=== PATIENT | male | born 1975 | race Caucasian/White ===

== ENCOUNTER 2019-02-10 21:44 | Inpatient (IN) | payer SELFPAY ==
[~2019-02-10] VITALS: Ht 182.9 cm; Wt 81.6 kg
[2019-02-10 23:05] LABS: BILIRUBIN,URINE LARGE (NEG); CLARITY,URINE CLEAR; COLOR,URINE AMBER; NITRITE,URINE NEGATIVE (NEG); PH,URINE 5.5; PROTEIN,URINE 30 mg/dL (NEG-TRACE)
[2019-02-10 23:10] LABS: BACTERIA,URINE 0 /HPF (0-FEW); RBC,URINE 0 /HPF (0-2); SQUAMOUS EPITHELIAL CELL,UR FEW /LPF
[2019-02-10 23:11] LABS: BASO # 0.1 x10^3/uL (0.0-0.2); BASO % 1 % (0-3); EOS # 0.3 x10^3/uL (0.0-0.7); EOS % 2 % (0-3); HEMATOCRIT 51.5 % (39.0-53.0); HEMOGLOBIN 17.5 g/dL (13.0-17.5); LYMPH # 2.2 x10^3/uL (1.0-4.8); LYMPH % 14 % (24-48); MEAN CORPUSCULAR HEMOGLOBIN 30 pg (25-35); MEAN CORPUSCULAR HGB CONC 34 g/dL (31-37); MEAN CORPUSCULAR VOLUME 87 fL (79-100); MONO # 1.5 x10^3/uL (0.0-1.1); MONO % 10 % (0-9); NEUT % 73 % (31-73); PLATELET COUNT 251 x10^3/uL (140-400); RED CELL DISTRIBUTION WIDTH 14.2 % (11.5-14.5)
[2019-02-10 23:11] LABS: AMORPHOUS SEDIMENT,UR PRESENT /HPF; HYALINE CASTS, URINE MANY /HPF
[2019-02-10 23:13] LABS: AMPHETAMINE/METHAMPHETAMINE POS (NEG); BARBITURATES NEG (NEG); BENZODIAZEPINES NEG (NEG); CANNABINOIDS NEG (NEG); COCAINE NEG (NEG); METHADONE NEG (NEG); OPIATES NEG (NEG); PHENCYCLIDINE NEG (NEG)
[2019-02-10 23:20] LABS: PROTHROMBIN TIME PATIENT 12.8 SEC (11.7-14.0)
[2019-02-10 23:27] LABS: CALCIUM 9.3 mg/dL (8.5-10.1); CREATININE 1.5 mg/dL (0.7-1.3); GFR 51.3; POTASSIUM 3.6 mmol/L (3.5-5.1)
[2019-02-10] MEDS ORDERED: ONDANSETRON PF 4 MG/2 ML VIAL. IV ONE (23:30)
[2019-02-10] MEDS ORDERED: IV NORMAL SALINE 1000ML BAG 1,000 ML IV ONE (23:30)
[2019-02-10] MEDS ORDERED: GLUCAGON,HUMAN RECOMBINANT 1 MG/ML VIAL. IV ONE (23:30)
[2019-02-10 23:33] LABS: ALBUMIN 3.8 g/dL (3.4-5.0); ALBUMIN/GLOBULIN RATIO 0.8 (1.0-1.7); TOTAL PROTEIN 8.6 g/dL (6.4-8.2)
--- NOTE | 2019-02-11 00:26 | PHYS DOC ---
Past Medical History Past Medical History: Asthma Past Surgical History: No Surgical History Alcohol Use: None Drug Use: None Adult General Chief Complaint Chief Complaint: HEAT EXPOSURE HPI HPI Patient is a 43 year old male who was salt presenting with a chief complaint of initially complaint was that of heat exposure. He says he was outside all day in the heat yesterday he came home he had body aches and muscle aches and he was very tired overall. In addition he ate a hot dog 3 days ago he says that he feels like it is still stuck triage nurse tells me that when he was out in the waiting room he was swallowing liquids just fine without any difficulty however on my violation the emergency room he tells me that he is unable to do that. He says this happened to him a few times before and it usually passes on its own but has not done so. Of note patient's urine drug screen is positive for methamphetamine. Review of Systems Review of Systems Constitutional: Eyes: Denies change in visual acuity, redness, or eye pain [] GI: Musculoskeletal: Denies back pain or joint pain [] Integument: Denies rash or skin lesions [] Neurologic: Denies headache, focal weakness or sensory changes [] Endocrine: Denies polyuria or polydipsia [] All other systems were reviewed and found to be within normal limits, except as documented in this note. Current Medications Current Medications Current Medications Medications (Trade) Dose Ordered Sig/Mo Start Time Stop Time Status Last Admin Dose Admin Glucagon (Glucagen) 1 mg 1X ONCE 02/10/19 23:30 02/10/19 23:31 DC 02/10/19 23:19 1 MG Lorazepam (Ativan Inj) 1 mg 1X ONCE 02/10/19 23:30 02/10/19 23:31 DC 02/10/19 23:19 1 MG Ondansetron HCl (Zofran) 4 mg 1X ONCE 02/10/19 23:30 02/10/19 23:31 DC 02/10/19 23:19 4 MG Sodium Chloride 1,000 ml @ 1,000 mls/hr 1X ONCE 02/10/19 23:30 02/11/19 00:29 02/10/19 23:02 1,000 MLS/HR Allergies Allergies Allergies Coded Allergies Type Severity Reaction Last Updated Verified No Known Drug Allergies 02/10/19 No Physical Exam Physical Exam Constitutional: MILD DISTRESS. HENT: Normocephalic, atraumatic, bilateral external ears normal, oropharynx DRY, no oral exudates, nose normal. [] Eyes: PERRLA, EOMI, conjunctiva normal, no discharge. [] Neck: Normal range of motion, no tenderness, supple, no stridor. [] Cardiovascular:Heart rate regular rhythm, no murmur [] Lungs & Thorax: Bilateral breath sounds clear to auscultation [] Abdomen: Bowel sounds normal, soft, no tenderness, no masses, no pulsatile masses. [] Skin: Warm, dry, no erythema, no rash. [] Back: No tenderness, no CVA tenderness. [] Extremities: No tenderness, no cyanosis, no clubbing, ROM intact, no edema. [] Neurologic: Alert and oriented X 3, normal motor function, normal sensory function, no focal deficits noted. [] Psychologic: Affect normal, judgement normal, mood normal. [] Current Patient Data Vital Signs Vital Signs Date Time Temp Pulse Resp B/P (MAP) Pulse Ox O2 Delivery O2 Flow Rate FiO2 02/10/19 21:59 98.1 122 20 123/79 (94) 97 Room Air 98.1 Lab Values Laboratory Tests Test 02/10/19 22:00 02/10/19 22:54 Urine Color Krysta Urine Clarity Clear Urine pH 5.5 Urine Specific Decker >=1.030 Urine Protein 30 mg/dL (NEG-TRACE) Urine Glucose (UA) Negative mg/dL (NEG) Urine Ketones (Stick) >=80 mg/dL (NEG) Urine Blood Negative (NEG) Urine Nitrite Negative (NEG) Urine Bilirubin Large (NEG) Urine Urobilinogen Dipstick 1.0 mg/dL (0.2 mg/dL) Urine Leukocyte Esterase Trace (NEG) Urine RBC 0 /HPF (0-2) Urine WBC 1-4 /HPF (0-4) Urine Squamous Epithelial Cells Few /LPF Urine Amorphous Sediment Present /HPF Urine Bacteria 0 /HPF (0-FEW) Urine Hyaline Casts Many /HPF Urine Mucus Marked /LPF Urine Opiates Screen Neg (NEG) Urine Methadone Screen Neg (NEG) Urine Barbiturates Neg (NEG) Urine Phencyclidine Screen Neg (NEG) Urine Amphetamine/Methamphetamine Pos (NEG) Urine Benzodiazepines Screen Neg (NEG) Urine Cocaine Screen Neg (NEG) Urine Cannabinoids Screen Neg (NEG) Urine Ethyl Alcohol Neg (NEG) White Blood Count 15.0 x10^3/uL (4.0-11.0) H Red Blood Count 5.90 x10^6/uL (4.30-5.70) H Hemoglobin 17.5 g/dL (13.0-17.5) Hematocrit 51.5 % (39.0-53.0) Mean Corpuscular Volume 87 fL (79-100) Mean Corpuscular Hemoglobin 30 pg (25-35) Mean Corpuscular Hemoglobin Concent 34 g/dL (31-37) Red Cell Distribution Width 14.2 % (11.5-14.5) Platelet Count 251 x10^3/uL (140-400) Neutrophils (%) (Auto) 73 % (31-73) Lymphocytes (%) (Auto) 14 % (24-48) L Monocytes (%) (Auto) 10 % (0-9) H Eosinophils (%) (Auto) 2 % (0-3) Basophils (%) (Auto) 1 % (0-3) Neutrophils # (Auto) 11.0 x10^3/uL (1.8-7.7) H Lymphocytes # (Auto) 2.2 x10^3/uL (1.0-4.8) Monocytes # (Auto) 1.5 x10^3/uL (0.0-1.1) H Eosinophils # (Auto) 0.3 x10^3/uL (0.0-0.7) Basophils # (Auto) 0.1 x10^3/uL (0.0-0.2) Prothrombin Time 12.8 SEC (11.7-14.0) Prothrombin Time INR 1.0 (0.8-1.1) Sodium Level 144 mmol/L (136-145) Potassium Level 3.6 mmol/L (3.5-5.1) Chloride Level 105 mmol/L (98-107) Carbon Dioxide Level 27 mmol/L (21-32) Anion Gap 12 (6-14) Blood Urea Nitrogen 17 mg/dL (8-26) Creatinine 1.5 mg/dL (0.7-1.3) H Estimated GFR (Cockcroft-Gault) 51.3 BUN/Creatinine Ratio 11 (6-20) Glucose Level 89 mg/dL (70-99) Calcium Level 9.3 mg/dL (8.5-10.1) Total Bilirubin 2.0 mg/dL (0.2-1.0) H Aspartate Amino Transferase (AST) 17 U/L (15-37) Alanine Aminotransferase (ALT) 22 U/L (16-63) Alkaline Phosphatase 141 U/L (46-116) H Creatine Kinase 104 U/L (39-308) Troponin I Quantitative < 0.017 ng/mL (0.000-0.055) Total Protein 8.6 g/dL (6.4-8.2) H Albumin 3.8 g/dL (3.4-5.0) Albumin/Globulin Ratio 0.8 (1.0-1.7) L Lipase 121 U/L (73-393) Ethyl Alcohol Level < 10 mg/dL (0-10) Laboratory Tests 02/10/19 22:54 Laboratory Tests 02/10/19 22:54 EKG EKG Chest x-ray reviewed by me was negative acute. No pneumomediastinum Radiology/Procedures Radiology/Procedures [] Course & Med Decision Making Course & Med Decision Making Pertinent Labs and Imaging studies reviewed. (See chart for details) []43-YEAR-OLD MALE WITH NO SIGNIFICANT PAST MEDICAL HISTORY PRESENTING WITH B ODYACHES AND HEAT EXPOSURE creatinine was mildly bumped white count was 15 this is nonspecific chest x-ray and urine were negative abdomen was nontender. Patient later on also told me about concerned about food impaction. I was told by triage nurse that he was witnessed to be swallowing water in the emergency room waiting room however he says he was unable to do that once we got into the emergency room in the back. Patient says he ate a hot dog 3 days ago multiple times in the past. His airway is totally fine NOW. given the timeline and the uncertainty of the SITUATION, I think is reasonable to admit him overnight for IV fluids observation and if persistently symptomatic GI consult in the morning. Dragon Disclaimer Dragon Disclaimer This electronic medical record was generated, in whole or in part, using a voice recognition dictation system. Departure Departure Impression: Primary Impression: Heat exposure Disposition: 09 ADMITTED INPATIENT Admitting Physician: JUDITH Condition: STABLE Patient Instructions: Heat Disorders-Brief CRISTI THOMPSON MD Feb 11, 2019 00:26
[2019-02-11] MEDS ORDERED: ONDANSETRON PF 4 MG/2 ML VIAL. IV PRN ×2 (00:30→09:15)
[2019-02-11] MEDS ORDERED: IV NORMAL SALINE 1000ML BAG 1,000 ML IV SCH (00:30)
[2019-02-11 01:14] VITALS: BP 133/84
[2019-02-11 02:50] VITALS: BP 118/82
--- NOTE | 2019-02-11 05:33 | RAD ---
PORTABLE CHEST 1V Clinical Indication: Weakness. Comparison: None. Findings: The cardiomediastinal silhouette is normal. Incidental azygos fissure. Lungs are clear. There is no pneumothorax. No pleural effusion is appreciated. No acute bone abnormality. IMPRESSION: No acute cardiopulmonary process. Electronically signed by: David Tapia MD (02/11/2019 5:30 AM) [id number]
[2019-02-11 06:39] VITALS: BP 136/92
[2019-02-11 10:09] LABS: BASO # 0.1 x10^3/uL (0.0-0.2); BASO % 1 % (0-3); EOS # 0.4 x10^3/uL (0.0-0.7); EOS % 4 % (0-3); HEMATOCRIT 47.9 % (39.0-53.0); HEMOGLOBIN 16.1 g/dL (13.0-17.5); LYMPH # 1.7 x10^3/uL (1.0-4.8); LYMPH % 18 % (24-48); MEAN CORPUSCULAR HEMOGLOBIN 29 pg (25-35); MEAN CORPUSCULAR HGB CONC 34 g/dL (31-37); MEAN CORPUSCULAR VOLUME 88 fL (79-100); MONO # 0.9 x10^3/uL (0.0-1.1); MONO % 9 % (0-9); NEUT # 6.6 x10^3/uL (1.8-7.7); NEUT % 69 % (31-73); PLATELET COUNT 205 x10^3/uL (140-400); RED BLOOD COUNT 5.48 x10^6/uL (4.30-5.70); RED CELL DISTRIBUTION WIDTH 14.1 % (11.5-14.5); WHITE BLOOD COUNT 9.6 x10^3/uL (4.0-11.0)
[2019-02-11 10:19] LABS: CALCIUM 8.4 mg/dL (8.5-10.1); CREATININE 1.2 mg/dL (0.7-1.3); GFR 66.4; POTASSIUM 3.2 mmol/L (3.5-5.1)
--- NOTE | 2019-02-11 11:08 | NUR ---
patient left room while all nurses were occupied. substation operator conversion received a call from ER that patient was smoking outside. Patient has known drug abuse history. Security was attempted and reached. Security could not locate patient and backed up the camera to see patient left in a vehicle. Security will notify nursing slab lifting supervisor and local PD. Dr. Booth notified.
--- NOTE | 2019-02-11 11:30 | PDOC ---
Provider Note Provider Note Patient went AMA even before being seen WAs an admit overnight by ER Apparently he is a 43-year-old white male with history of food impaction in the past. Chart reviewed. Ate some hot dog, claims had some difficulty swallowing. But upon ER assessment was sipping water fine. Chest x-ray is unremarkable. Creatinine 1.5 with WBC 15. I started some fluids with GI on board. per ER note said something similar happened 3 days ago. Positive amphetamines in UDS. Smoker, and went out to smoke and now we cannot find him in the hospital with an IV line inserted Patient left AMA without signing anything and with IV line intact Unable to see the patient today dw RN CORY Lvoe MD Feb 11, 2019 11:30
[2019-02-11] MEDS ORDERED: FAMOTIDINE 20 MG/2 ML VIAL IVP SCH (21:00)
== END 2019-02-11 11:19 | disposition left against medical advice (07) | DRG 392 ==
LOC: ER 21:44 → 5 SOUTH 02-11 00:15
PROVIDERS: ADMIT Family Medicine; ATTEND Family Medicine
DX: R13.10 Dysphagia, unspecified (principal); J45.909 Unspecified asthma, uncomplicated; Z53.21 Procedure and treatment not carried out due to patient leaving prior to being seen by health care provider; F17.210 Nicotine dependence, cigarettes, uncomplicated; F15.90 Other stimulant use, unspecified, uncomplicated; X30.XXXA Exposure to excessive natural heat, initial encounter; Y93.89 Activity, other specified; Y92.89 Other specified places as the place of occurrence of the external cause; Y99.8 Other external cause status
CPT/HCPCS: 36415; 71045; 80048; 80053; 80307; 81001; 82550; 83690; 84484; 85025; 85610; 87086; G0480; J1610; J2060; J2405; J7030

== ENCOUNTER 2020-03-31 11:51 | Emergency (ER) | payer SELFPAY ==
[~2020-03-31] VITALS: Ht 182.9 cm; Wt 93.1 kg
[2020-03-31 12:02] VITALS: BP 135/95
[2020-03-31] MEDS ORDERED: AMOX500T PO (13:18)
[2020-03-31] MEDS ORDERED: HYDR-3164 PO (13:18)
--- NOTE | 2020-03-31 13:18 | PHYS DOC ---
Past Medical History Past Medical History: Asthma Past Surgical History: No Surgical History Smoking Status: Current Every Day Smoker Alcohol Use: None Drug Use: None General Adult EDM: Chief Complaint: DENTAL PROBLEM HPI: HPI: Patient is a 44 year old male who presents with right lower gum dental abscess that began yesterday. Patient denies any fever or trismus. Review of Systems: Review of Systems: Constitutional: Denies fever or chills. [] HENT: Reports right lower gum dental abscess Musculoskeletal: Denies back pain or joint pain. [] Integument: Denies rash. [] Neurologic: Denies headache, focal weakness or sensory changes. [] Psychiatric: Denies depression or anxiety. [] Heart Score: Risk Factors: Risk Factors: DM, Current or recent (<one month) smoker, HTN, HLP, family history of CAD, obesity. Risk Scores: Score 0 - 3: 2.5% MACE over next 6 weeks - Discharge Home Score 4 - 6: 20.3% MACE over next 6 weeks - Admit for Clinical Observation Score 7 - 10: 72.7% MACE over next 6 weeks - Early Invasive Strategies Allergies: Allergies: Allergies Coded Allergies Type Severity Reaction Last Updated Verified No Known Drug Allergies 02/10/19 No Physical Exam: PE: Constitutional: Well developed, well nourished, no acute distress, non-toxic appearance. [] HENT: Normocephalic, atraumatic, bilateral external ears normal, oropharynx [address], no oral exudates, nose normal. [] Right lower cheek with mild swelling consistent of a dental abscess, tooth #31 is broken and decayed. Missing tooth #30, poor dentition, dental caries noted. Erythema noted to the right lower gums, Skin: Warm, dry, no erythema, no rash. [] Back: No tenderness, no CVA tenderness. [] Extremities: No tenderness, no cyanosis, no clubbing, ROM intact, no edema. [] Neurologic: Alert and oriented X 3, normal motor function, normal sensory function, no focal deficits noted. [] Psychologic: Affect normal, judgement normal, mood normal. [] EKG: EKG: [] Radiology/Procedures: Radiology/Procedures: [] Course & Med Decision Making: Course & Med Decision Making Pertinent Labs and Imaging studies reviewed. (See chart for details) This is a 44-year-old male patient with a dental abscess. Discharged on amoxicillin. Provided dental list for follow-up. Silvio Disclaimer: Silvio Disclaimer: This electronic medical record was generated, in whole or in part, using a voice recognition dictation system. Departure Departure Impression: Primary Impression: Dental abscess Additional Impression: Infected dental caries Disposition: HOME, SELF-CARE Condition: STABLE Referrals: NO PCP (PCP) follow up with a dentist from the list provided in 1 week Patient Instructions: Dental Abscess Additional Instructions: You were evaluated in the emergency room for dental abscess. Take the prescribed antibiotics until completed. Follow-up with a dentist from the list provided Scripts Hydrocodone/Apap 5-325 (NORCO 5-325 TABLET) 1 Each Tablet 1 TAB PO Q6HRS, #12 TAB Prov: MANUEL ORELLANA APRN 03/31/20 Amoxicillin (AMOXICILLIN) 500 Mg Tablet 1 TAB PO BID, #20 TAB Prov: MANUEL ORELLANA APRN 03/31/20 Justicifation of Admission Dx: Justifications for Admission: Justification of Admission Dx: N/A MANUEL ORELLANA APRN Mar 31, 2020 13:18
== END 2020-03-31 13:30 | disposition home or self-care (01) ==
LOC: ER 11:51
DX: K04.7 Periapical abscess without sinus (principal); K02.9 Dental caries, unspecified; R60.0 Localized edema; J45.909 Unspecified asthma, uncomplicated; F17.200 Nicotine dependence, unspecified, uncomplicated
CPT/HCPCS: 99283